=== PATIENT | male | born 1975 | race Hispanic/Latino ===

== ENCOUNTER 2019-08-12 23:07 | Inpatient (IN) | payer SELFPAY ==
[2019-08-12 23:53] VITALS: BMI 40.8
[2019-08-13] MEDS ORDERED: Labetalol HCl 100 MG/20 ML VIAL SLOW IVP PRN (00:05)
[2019-08-13] MEDS ORDERED: Dextrose 5% in Water 1,000 ML IV PRN (06:45)
[2019-08-13] MEDS ORDERED: Dextrose 50% Abboject 50 ML SYRINGE SLOW IVP PRN (06:45)
[2019-08-13] MEDS ORDERED: Sodium Chloride 0.9% 1,000 ML IV SCH (07:00)
--- NOTE | 2019-08-13 07:19 | HP ---
PRIMARY CARE PHYSICIAN: The patient does not have a primary care physician. CHIEF COMPLAINT: "I'm off-balance." HISTORY OF PRESENT ILLNESS: Mr. Mari is a very pleasant 43-year-old gentleman, who has no known past medical history. He says that yesterday morning, he started having difficulty with his balance and he says he noticed it a little bit even the night before. He says that when he gets up to walk, he finds himself kind of going to the right. He also noted some numbness on the right side of his face as well. He was also noticing some nausea and vomited 5 times. He says when he looks at things it looks like he is seeing double and when he was trying to read, it was like the words were moving back and forth. As a result, he came to the ER at [facility] for evaluation. There, he was noted to have both horizontal and rotary nystagmus, plus his blood pressure was extremely high and there was concern for possible cerebellar infarct and for this reason, he was transferred to our facility for further evaluation. The patient denies any chest pain. No shortness of breath and other than his right leg seeming like it gives out, no other weakness in his extremities. No leg pain or leg swelling and he has never been ill and has never had anything like this happen to him before. REVIEW OF SYSTEMS: All systems were reviewed and are negative except for that mentioned in the history of present illness. PAST MEDICAL HISTORY: Negative. PAST SURGICAL HISTORY: Negative. ALLERGIES: NO KNOWN DRUG ALLERGIES. SOCIAL HISTORY: He smokes about 2 to 3 cigarettes a day for the past 20 years. Denies any alcohol use. He is and he works as a night manager. FAMILY HISTORY: Significant for mother, who has diabetes as well as grandmother and a sister, who had a cerebral aneurysm. PHYSICAL EXAMINATION: GENERAL: He is currently alert and oriented. He is in no acute distress. He does admit that the bright lights do tend to bother his eyes. VITAL SIGNS: His vital signs initially at the [facility] ER, blood pressure was 239/134, his heart rate was 94, respiratory rate of 16, and he is afebrile. HEENT: Pupils are equal, round, and reactive. Extraocular muscles are intact. His sclerae are anicteric. His throat, there are no erythema, no exudates. The uvula is midline. NECK: No adenopathy. No bruits. LUNGS: Clear to auscultation. There are no wheezing, no rales, no rhonchi. CARDIOVASCULAR: He has a normal S1 and S2. I did not appreciate an S3 or S4. No murmurs, clicks, or rubs. ABDOMEN: Obese. It is soft, nontender, and nondistended. Positive for bowel sounds. No rebound. No guarding. No organomegaly. EXTREMITIES: There is no edema. No calf tenderness. No joint effusions. NEUROLOGIC: The cranial nerves II through XII are grossly intact. Muscle strength was intact in both his upper and lower extremities. He did have some difficulty with [id number] on the right upper extremity with some past-pointing of his own nose. He was able to do well on [id number]. SKIN AND INTEGUMENT: There are no skin changes and no rash. LABORATORY DATA: Lab results from the [facility] ER, the white blood cell count was 14.1, hemoglobin was 14.3, hematocrit was 42.2, and platelet count was 269. Sodium 138, potassium 2.8, chloride is 106, CO2 is 24, BUN of 12, creatinine 0.7, glucose is 388. He had a total cholesterol of 185, HDL of 41, and LDL of 86. IMAGING DATA: His EKG was normal sinus rhythm without any ST wave changes. CT scan again was reported as being negative. ASSESSMENT AND PLAN: This is a pleasant 43-year-old gentleman, who presents to the emergency room with dangerously high blood pressure and hypertensive urgency as well as ataxia and difficulty with his balance. He also appears to have new-onset diabetes as well with a random glucose above 300. 1. For hypertensive urgency, his blood pressure has improved after p.r.n. hydralazine and labetalol. We will likely keep his blood pressure in the 160 to 180 range given the concern for an acute stroke. Therefore, we will allow some permissive hypertension and place him on a low dose of lisinopril for now which can be titrated later. 2. Possible cerebellar infarct. We will get an MRI of the brain as well as a CT angiogram of the neck and agdaagux of Roman. Get an echocardiogram and monitor him clinically. 3. New-onset diabetes. We will need to get dietitian consult. Check a hemoglobin A1c and likely start him on an oral hypoglycemic such as metformin at the time of discharge. We will place him on aspirin and a statin and further recommendations to follow. Job ID: [id number]
[2019-08-13 07:25] LABS: Anion Gap 14 mmol/L (10-20); BUN (Urea Nitrogen) 15 mg/dL (8.9-20.6); Calc. Creatinine Clearance 170 mL/min (70-130); Calcium 9.2 mg/dL (7.8-10.44); Carbon Dioxide 24 mmol/L (22-29); Chloride 101 mmol/L (98-107); Estimated GFR-MDRD 90; Glucose 339 mg/dL (70-105); Potassium 3.3 mmol/L (3.5-5.1); Sodium 136 mmol/L (136-145)
[2019-08-13] MEDS ORDERED: Bisacodyl 10 MG SUPP PR PRN (08:02)
[2019-08-13] MEDS ORDERED: Zolpidem Tartrate 5 MG TAB PO PRN (08:02)
[2019-08-13] MEDS ORDERED: Ondansetron PF 4 MG/2 ML Vial IVP PRN (08:02)
[2019-08-13] MEDS ORDERED: Loratadine 10 MG TAB PO PRN (08:02)
[2019-08-13] MEDS ORDERED: Loperamide HCl 2 MG CAP PO PRN (08:02)
[2019-08-13] MEDS ORDERED: Ondansetron ODT 4 MG TAB PO PRN (08:02)
[2019-08-13] MEDS ORDERED: Senokot S 8.6-50 MG TAB PO PRN (08:02)
[2019-08-13] MEDS ORDERED: Sodium Chloride 0.65% Nasal 44 ML BOT EA NARE PRN (08:02)
[2019-08-13] MEDS ORDERED: hydrALAZINE 20 MG/ML VIAL SLOW IVP PRN (08:02)
[2019-08-13] MEDS ORDERED: Diabetic Tussin 200 MG/10 ML UDCUP PO PRN (08:02)
[2019-08-13] MEDS ORDERED: HYDROcodone/Acetaminophen 5/325 mg Tablet PO PRN (08:02)
[2019-08-13] MEDS ORDERED: Artificial Tears 18 DROP/0.9 ML EA EYE PRN (08:02)
[2019-08-13] MEDS ORDERED: Lisinopril 5 MG TAB PO SCH (09:00)
[2019-08-13] MEDS ORDERED: FLU VACC QS2019-20(6MOS UP)/PF 60 MCG/0.5 ML SYRINGE IM ONE (09:00)
[2019-08-13] MEDS: Enoxaparin Sodium 40 MG/0.4 ML SYRINGE SC SCH (09:10)
[2019-08-13] MEDS: Aspirin 325 mg Enteric Coated Tablet PO SCH (09:10)
[2019-08-13] MEDS: Acetaminophen 325 MG TAB PO PRN (09:11)
[2019-08-13] MEDS: Famotidine 20 MG TAB PO SCH ×2 (09:11→21:42)
--- NOTE | 2019-08-13 09:41 | CT ---
INDICATION: Stroke. COMPARISON: None. TECHNIQUE: CT angiogram of the head and neck are performed in the axial plane. Three-dimensional reformatted clarence ges are submitted for interpretation. FINDINGS: CTA OF THE HEAD WITH AND WITHOUT CONTRAST: NONCONTRAST HEAD CT: No parenchymal hemorrhage. No extra-axial hematoma. No midline shift. Brain volume is age-appropriate . Intact calvarium. Bilateral maxillary sinus mucosal disease. POSTCONTRAST CT OF BRAIN: Pathologic enhancement: No pathologic enhancement the brain. POSTCONTRAST SOFT TISSUE NECK CT: Sinuses: Bilateral maxillary sinus mucosal disease.. Orbits: Bilateral ocular lenses are appropriately located. Both globes are intact. Retrobulbar fat is preserved. Symmetric attenuation the optic nerves and ocular rectus muscles. Salivary glands:Symmetric attenuation of the parotid and submandibular gland . Thyroid gland: Unremarkable Lymph nodes: Scattered mildly enlarged bilateral soft tissue neck lymph nodes with preserved fatty hi lum. Findings are nonspecific. Clinical correlation is essential. [employer]ant right level 2 lymph node measures 0.8 x 1.2 cm. Left level 1 lymph node measures 1.4 x 0.7 cm. Paraspinal muscles: Symmetric attenuation of the sternocleidomastoid muscles. Appropriate attenuation of the paraspinal muscles. Cervical spine:Vertebral body height is maintained. No fracture. At the C3 level, there is narrowing of the central spinal canal likely due to calcification of the posterior longitudinal ligament. Otherwise, no significant central canal stenosis or significant neural foraminal narrowing. Limited e valuation by technique. Upper mediastinum and lung apices: No acute abnormality. CTA OF THE NECK WITH CONTRAST: Aorta: Visualized aorta is appropriate enhancement and luminal diameter. Right carotid artery: The origin of the right carotid artery has appropriate enhancement and luminal diameter. The right common carotid, carotid bifurcation and internal carotid artery have appropriate enhancement and luminal diameter. Left carotid: The origin of the left carotid artery is appropriate enhancement and luminal diameter. The left common carotid artery, carotid bifurcation and internal carotid artery have appropriate enhancement and luminal diameter. Subclavian arteries:Patent and symmetric . Vertebral arteries:Bilateral vertebral artery origins are patent. Both cervical vertebral arteries ar e patent throughout their course in the neck. Dominant right vertebral artery. CTA OF THE BRAIN: Intracranial internal carotid arteries:Symmetric enhancement and luminal diameter. Anterior circulation: Appropriate enhancement and luminal diameter of the A1 and M1 segments. Proxima l A2 segments and proximal MCA branches have appropriate enhancement and luminal diameter. Intracranial vertebral arteries: Both intracranial vertebral arteries are patent. The basilar artery is predominantly supplied by the right vertebral artery. Posterior circulation: Appropriate enhancement and luminal diameter of bilateral P1 segments. IMPRESSION: 1. No hemodynamically significant stenosis, occlusion or aneurysmal formation. No significant stenosi s based upon NASCET criteria. 2. Nonspecific soft tissue neck lymph nodes. Correlate clinically. Transcribed Date/Time: 08/13/2019 9:51 AM
--- NOTE | 2019-08-13 09:43 | MRI ---
MRI BRAIN WITHOUT CONTRAST: HISTORY: Dizziness, TIA. FINDINGS: No restricted diffusion is seen. No evidence of infarct, hemorrhage, midline shift, or abnormal extr aaxial fluid collections is noted. The ventricular size is appropriate and the basilar cisterns owens nt. There is mucosal disease in the paranasal sinuses. IMPRESSION: No evidence of acute intracranial process. POS: TPC
--- NOTE | 2019-08-13 09:44 | PDOC.HOSPP ---
- Subjective Encounter Date: 08/13/19 Encounter Time: 07:10 Subjective: pt has dizziness, no headache, no nausea or vomiting today, Patient seen and examined. No overnight events - Objective Vital Signs & Weight: Vital Signs (12 hours) Temp Pulse Resp BP BP Pulse Ox 08/13/19 09:11 68 186/95 H 08/13/19 07:14 99.3 F 68 20 186/95 H 97 08/13/19 05:10 65 175/91 H 08/13/19 04:21 86 207/109 H 08/13/19 03:26 98.6 F 86 16 207/109 H 97 08/13/19 00:27 186/98 H 08/12/19 23:09 97.7 F 74 16 221/121 H 99 Weight Weight 252 lb 12.8 oz Result Diagrams: 08/13/19 06:54 Additional Labs: Accuchecks 08/13/19 06:42 POC Glucose 294 H Radiology Reviewed by me: Yes EKG Reviewed by me: Yes Hospitalist ROS - Review of Systems Constitutional: denies: fever, chills, sweats, weakness, malaise, other ENT: denies: ear pain, ear discharge, nose pain, nose discharge, nose congestion , mouth pain, mouth swelling, throat pain, throat swelling, other Respiratory: denies: cough, dry, shortness of breath, hemoptysis, SOB with excertion, pleuritic pain, sputum, wheezing, other Cardiovascular: reports: light headedness. denies: chest pain, palpitations, orthopnea, paroxysmal noc. dyspnea, edema, other Gastrointestinal: denies: nausea, vomiting, abdominal pain, diarrhea, constipation, melena, hematochezia, other Genitourinary: denies: dysuria, frequency, incontinence, hematuria, retention, other Musculoskeletal: denies: neck pain, shoulder pain, arm pain, back pain, hand pain, leg pain, foot pain, other Skin: denies: rash, lesions, anny, bruising, other Neurological: reports: incoordination. denies: weakness, numbness, change in speech, confusion, seizures, other - Medication Medications: Active Medications Generic Name Dose Route Start Last Admin Trade Name Freq PRN Reason Stop Dose Admin Acetaminophen 650 mg 08/13/19 06:45 08/13/19 09:11 Tylenol PO 650 mg Q4H PRN Administration Headache/Fever/Mild Pain (1-3) Aspirin 325 mg 08/13/19 09:00 08/13/19 09:10 Ecotrin PO 325 mg DAILY MISTY Administration Enoxaparin Sodium 40 mg 08/13/19 09:00 08/13/19 09:10 Lovenox SC 40 mg 0900 MISTY Administration Famotidine 20 mg 08/13/19 09:00 08/13/19 09:11 Pepcid PO Not Given BID MISTY Labetalol HCl 10 mg 08/13/19 00:05 08/13/19 04:21 Normodyne SLOW IVP 10 mg Q4H PRN Administration SBP>190 Lisinopril 5 mg 08/13/19 09:00 08/13/19 09:11 Zestril PO 5 mg DAILY MISTY Administration - Exam General Appearance: NAD, awake alert Eye: PERRL, anicteric sclera ENT: normocephalic atraumatic, no oropharyngeal lesions Neck: supple, symmetric, no JVD, no thyromegaly Heart: RRR, no murmur, no gallops, no rubs Respiratory: CTAB, no wheezes, no rales, no ronchi Gastrointestinal: soft, non-tender, non-distended, normal bowel sounds Extremities: no cyanosis, no clubbing, no edema Skin: normal turgor, no lesions Neurological: no weakness Musculoskeletal: normal tone, normal strength Psychiatric: normal affect, normal behavior Hosp A/P (1) CVA (cerebral vascular accident) Code(s): I63.9 - CEREBRAL INFARCTION, UNSPECIFIED Status: Suspected Qualifiers: Precerebral and cerebral artery: cerebellar artery Laterality of affected vessel: unspecified (2) Hypertensive urgency Code(s): I16.0 - HYPERTENSIVE URGENCY Status: Acute (3) Hypokalemia Code(s): E87.6 - HYPOKALEMIA Status: Acute (4) New onset type 2 diabetes mellitus Code(s): E11.9 - TYPE 2 DIABETES MELLITUS WITHOUT COMPLICATIONS Status: Acute (5) Morbid obesity with BMI of 40.0-44.9, adult Code(s): E66.01 - MORBID (SEVERE) OBESITY DUE TO EXCESS CALORIES; Z68.41 - BODY MASS INDEX (BMI) 40.0-44.9, ADULT Status: Chronic - Plan old records reviewed/req, plan discussed w/ family continue aspirin, lipitor, today MRI brain, Echo and CT angio diatray education given continue PT will adjust BP and diabetes medication discussed with family medication reviewed
[2019-08-13 09:45] LABS: Hemoglobin A1c 13.4 % (4.0-6.0)
[2019-08-13 09:46] LABS: #Basophils 0.1 thou/uL (0.0-0.2); #Lymphocytes 2.5 thou/uL (1.20-3.40); #Monocytes 0.8 thou/uL (0.11-0.59); #Neutrophils 7.8 thou/uL (1.40-6.50); %Basophils 0.6 % (0.0-1.0); %Eosinophils 0.2 % (0.0-10.0); %Lymphocytes 21.9 % (21.0-51.0); %Monocytes 7.1 % (0.0-10.0); %Neutrophils 70.2 % (42.0-75.0); Hemoglobin 15.2 g/dL (14.0-18.0); Mean Corpuscular HGB CONC 33.5 g/dL (32.0-36.0); Mean Corpuscular Hemoglobin 29.2 pg (27.0-31.0); Mean Corpuscular Volume 87.1 fL (78.0-98.0); Platelet Count 218 thou/uL (130-400); RBC Distribution Width 12.5 % (11.5-14.5); Red Blood Cell (RBC) Count 5.23 mill/uL (4.70-6.10); White Blood Cell (WBC) Count 11.2 thou/uL (4.8-10.8)
[2019-08-13 09:49] LABS: ALT (SGPT) 16 U/L (8-55); AST (SGOT) 11 U/L (5-34); Albumin 3.7 g/dL (3.5-5.0); Alkaline Phosphatase 90 U/L (40-110); Bilirubin, Direct 0.4 mg/dL (0.1-0.3); Magnesium 1.8 mg/dL (1.6-2.6); Protein, Total 7.6 g/dL (6.0-8.3)
[2019-08-13] MEDS ORDERED: Amlodipine 5 MG TAB PO SCH (10:00)
[2019-08-13] MEDS ORDERED: Meclizine HCl 25 MG TAB PO SCH (12:00)
[2019-08-13] MEDS: HumuLIN 70/30 (300 UNITS/3 ML VIAL) SC SCH ×2 (12:40→17:01)
[2019-08-13] MEDS: Meclizine HCl 25 MG TAB PO SCH ×2 (12:51→21:42)
[2019-08-13] MEDS ORDERED: Potassium Chloride 10 MEQ in Premix Bag 1 BAG IVPB SCH (13:00)
[2019-08-13] MEDS: HumaLOG 300 UNITS/3 ML VIAL SC PRN ×3 (13:20→21:44)
[2019-08-13 15:14] LABS: Amphetamine Not Detected (NotDetected); Barbiturates Screen Not Detected (NotDetected); Benzodiazepine Screen Not Detected (NotDetected); Cocaine Metabolite Screen Not Detected (NotDetected); Medtox Control Line Valid? VALID (VALID); Medtox Reader # READER 4; Methadone Not Detected (NotDetected); Methamphetamine Not Detected (NotDetected); Opiate Screen Not Detected (NotDetected); Oxycodone Screen Not Detected (NotDetected); Phencyclidine (PCP) Not Detected (NotDetected); THC/Cannabinoid Screen Not Detected (NotDetected); Tricyclic Screen Not Detected (NotDetected)
[2019-08-13] MEDS ORDERED: Iopamidol 370 76% 100 ML VIAL ONE (15:48)
[2019-08-13] MEDS ORDERED: NPH, Human Insulin Isophane 300 UNIT/3 ML VIAL SC SCH (21:00)
[2019-08-13] MEDS: Atorvastatin Calcium 40 MG TAB PO SCH (21:42)
[2019-08-13] MEDS: Lisinopril 5 MG TAB PO SCH (21:43)
[2019-08-14] MEDS: diphenhydrAMINE 25 MG CAP PO PRN (01:44)
[2019-08-14] MEDS: Meclizine HCl 25 MG TAB PO SCH ×3 (04:45→17:07)
[2019-08-14 05:47] LABS: Cardiac Risk 5.2 (Less than 4.5)
[2019-08-14] MEDS: HumaLOG 300 UNITS/3 ML VIAL SC PRN ×3 (08:05→20:51)
[2019-08-14] MEDS ORDERED: Amlodipine 5 MG TAB PO SCH ×2 (09:00→10:45)
[2019-08-14 09:10] LABS: Bilirubin Negative (Negative); Blood, Urine Trace (Negative); Clarity Turbid (Clear); Glucose, Urine (Dipstick) Greater than 1000 mg/dL (Negative); Leukocyte 500 Leu/uL (Negative); Nitrite Negative (Negative); Protein, Urine (Dipstick) 50 mg/dL (Neg-Trace); RBC/HPF 21-50 HPF (0-3); Urobilinogen 3 mg/dL (Less than 2); WBC/HPF Greater than 50 HPF (0-3)
[2019-08-14] MEDS: Cyanocobalamin (Vitamin B-12) 1,000 MCG TAB PO SCH (09:20)
[2019-08-14] MEDS: Folic Acid 1 MG TAB PO SCH (09:20)
[2019-08-14] MEDS: Aspirin 325 mg Enteric Coated Tablet PO SCH (09:20)
[2019-08-14] MEDS: Lisinopril 5 MG TAB PO SCH ×2 (09:20→20:31)
[2019-08-14] MEDS: HumuLIN 70/30 (300 UNITS/3 ML VIAL) SC SCH ×3 (09:21→17:02)
[2019-08-14] MEDS: Famotidine 20 MG TAB PO SCH ×2 (09:21→20:31)
[2019-08-14 09:22] LABS: Bacteria/HPF 1+ HPF (None Seen)
[2019-08-14] MEDS: Enoxaparin Sodium 40 MG/0.4 ML SYRINGE SC SCH (09:22)
--- NOTE | 2019-08-14 10:37 | PDOC.HOSPP ---
- Subjective Encounter Date: 08/14/19 Encounter Time: 10:20 Subjective: f/u for ? CVA, vertigo and HTN urgency. States overall the dizziness is improved but still holding onto the wall while walking to bathroom. Some double vision and disturbance but improved in last 24h. - Objective Vital Signs & Weight: Vital Signs (12 hours) Temp Pulse Resp BP BP Pulse Ox 08/14/19 09:21 59 L 142/85 H 08/14/19 09:20 59 L 142/85 H 08/14/19 07:13 97.9 F 59 L 16 177/103 H 97 08/14/19 03:10 98 F 55 L 16 137/75 98 08/13/19 23:44 97.8 F 63 16 140/82 98 Weight Weight 252 lb 12.8 oz I&O: 08/13/19 08/14/19 08/15/19 06:59 06:59 06:59 Intake Total 120 Output Total 900 Balance -780 Result Diagrams: 08/13/19 09:17 08/13/19 06:54 Additional Labs: Accuchecks 08/14/19 08/13/19 08/13/19 06:00 20:23 16:34 POC Glucose 213 H 309 H 344 H 08/13/19 10:41 POC Glucose 347 H Radiology Reviewed by me: Yes (Echo - EF 55-60%, diast dysfxn) EKG Reviewed by me: Yes (Tele - SR) Hospitalist ROS - Medication Medications: Active Medications Generic Name Dose Route Start Last Admin Trade Name Freq PRN Reason Stop Dose Admin Acetaminophen 650 mg 08/13/19 06:45 08/13/19 09:11 Tylenol PO 650 mg Q4H PRN Administration Headache/Fever/Mild Pain (1-3) Aspirin 325 mg 08/13/19 09:00 08/14/19 09:20 Ecotrin PO 325 mg DAILY MISTY Administration Atorvastatin Calcium 40 mg 08/13/19 21:00 08/13/19 21:42 Lipitor PO 40 mg HS MISTY Administration Cyanocobalamin 1,000 mcg 08/14/19 09:00 08/14/19 09:20 Vitamin B-12 PO 1,000 mcg DAILY MISTY Administration Diphenhydramine HCl 25 mg 08/14/19 01:11 08/14/19 01:44 Benadryl PO 25 mg Q6H PRN Administration Itching & Insomnia Enoxaparin Sodium 40 mg 08/13/19 09:00 08/14/19 09:22 Lovenox SC 40 mg 0900 MISTY Administration Famotidine 20 mg 08/13/19 09:00 08/14/19 09:21 Pepcid PO 20 mg BID MISTY Administration Folic Acid 1 mg 08/14/19 09:00 08/14/19 09:20 Folvite PO 1 mg DAILY MISTY Administration Hydralazine HCl 10 mg 08/13/19 08:02 08/13/19 09:47 Apresoline SLOW IVP 10 mg Q4H PRN Administration SBP > 180 and HR < 70 Insulin Human Isoph/Insulin Regular 10 units 08/13/19 11:30 08/14/19 09:21 Humulin 70/30 SC 10 unit AC MISTY Administration Insulin Human Lispro 0 units 08/13/19 06:45 08/14/19 08:05 Humalog SC 4 unit .MODERATE SLIDING SC PRN Administration Moderate Correctional Scale Insulin Human Lispro 0 units 08/13/19 06:45 08/13/19 21:44 Humalog SC 4 unit .BEDTIME SLIDING SC PRN Administration Bedtime Correctional Scale Labetalol HCl 10 mg 08/13/19 00:05 08/13/19 04:21 Normodyne SLOW IVP 10 mg Q4H PRN Administration SBP>190 Lisinopril 5 mg 08/13/19 21:00 08/14/19 09:20 Zestril PO 5 mg BID MISTY Administration - Exam General Appearance: NAD, awake alert Eye: PERRL Eye - other findings: + horizontal nystagmus ENT: normocephalic atraumatic, no oropharyngeal lesions Neck: supple, symmetric, no JVD, no thyromegaly Heart: RRR, no murmur, no gallops, no rubs, normal peripheral pulses Respiratory: CTAB, no wheezes, no rales, no ronchi Gastrointestinal: soft, non-tender, non-distended, normal bowel sounds Extremities: no cyanosis, no clubbing, no edema Skin: normal turgor, no lesions Neurological: cranial nerve grossly intact Neurological - other findings: +nystagmus Musculoskeletal: normal tone, normal strength, no muscle wasting Psychiatric: normal affect, normal behavior, A&O x 3 Hosp A/P (1) Vertigo Code(s): R42 - DIZZINESS AND GIDDINESS Status: Acute Plan: Likely due to HTN urgency, increase Meclizine 25mg po q6h, may consider outpt vestibular rehab, MRI brain negative (2) Nystagmus Code(s): H55.00 - UNSPECIFIED NYSTAGMUS Status: Acute Plan: Secondary to #1, see above (3) Hypertensive urgency Code(s): I16.0 - HYPERTENSIVE URGENCY Status: Acute Plan: Resolved, increase Amlodipine 10mg po daily, continue Lisinopril (4) Hypokalemia Code(s): E87.6 - HYPOKALEMIA Status: Acute Plan: Mild, increase po intake (5) New onset type 2 diabetes mellitus Code(s): E11.9 - TYPE 2 DIABETES MELLITUS WITHOUT COMPLICATIONS Status: Acute Plan: continue ISS, continue Insulin 70/30, add Metformin for home (6) Morbid obesity with BMI of 40.0-44.9, adult Code(s): E66.01 - MORBID (SEVERE) OBESITY DUE TO EXCESS CALORIES; Z68.41 - BODY MASS INDEX (BMI) 40.0-44.9, ADULT Status: Chronic - Plan plan discussed w/ family, PT/OT, social staff worker, out of bed/ambulate Increase Amlodipine 10mg daily Continue Lisinopril Increase Meclizine 25mg po q6h OOB with PT Outpt referral for vestibular rehab Add Metformin 500mg BID Likely home in 24h
[2019-08-14] MEDS: Cepastat Lozenges 1 LOZ PO PRN ×2 (14:00→17:12)
[2019-08-14] MEDS: metFORMIN 500 MG TAB PO SCH (16:28)
[2019-08-14] MEDS ORDERED: Albuterol Sulfate 1.25 MG/3 ML NEB ONE (17:06)
[2019-08-14] MEDS: Atorvastatin Calcium 40 MG TAB PO SCH (20:31)
--- NOTE | 2019-08-14 23:13 | CON ---
DATE OF CONSULTATION: 08/14/2019 CONSULTING PHYSICIAN: Hospitalist Service. IMPRESSION: 1. Probable brainstem stroke secondary to his underlying diabetes and hypertension despite the negative MRI. 2. Undiagnosed diabetes and hypertension. PLAN: 1. Continue aspirin and a statin. 2. Address blood pressure and blood sugar issues. 3. Consider need for outpatient GI followup for complaints of difficulty passing food down the esophagus. HISTORY OF PRESENT ILLNESS: Mr. Mari is a 43-year-old man, who came in with complaints of acute onset of double vision. He described the images in a skew deviation. There was some minimal dizziness associated with it. He had a tendency to fall to the right. He noted some right facial numbness. He had a CT angiogram, which did not show any evidence of stenosis. His MRI of the brain was also negative for any findings of an acute infarct. His echocardiogram showed ejection fraction of 55% to 60%. His degree of unsteadiness has improved. The double vision has persisted. He is without any complaints of headache. He reports that when he tries to eat it feels like food is hanging up in his esophagus. There is no choking associated with it. He denies any lateralized numbness of the extremities. He has not noticed any weakness in his extremities. PAST MEDICAL HISTORY: Otherwise negative. ALLERGIES: NONE REPORTED. SOCIAL HISTORY: No tobacco or alcohol. FAMILY HISTORY: Noncontributory. REVIEW OF SYSTEMS: Ten-system review of systems is otherwise unremarkable. PHYSICAL EXAMINATION: GENERAL: He is an overweight middle-aged man, sitting up in bed, in no acute distress. VITAL SIGNS: Pulse 55, respirations 20. He is afebrile. HEENT: Pupils are equal and reactive. Conjunctivae clear. Oropharynx clear. There is some nystagmus present in the left lateral gaze. NECK: No lymphadenopathy present. EXTREMITIES: No cyanosis or edema. NEUROLOGIC: He is alert and cooperative. His speech is fluent and clear. Cranial nerve exam was otherwise only notable for his subjective decreased sensation in the right lower face. Motor exam showed good strength bilaterally. No tremor or dysmetria was present at this time, although he reported it earlier in the visit. Sensation is intact. Gait was not tested. LABORATORY DATA: EKG shows normal sinus rhythm. SUMMARY: Despite the lack of findings on MRI, his array of symptoms would be consistent with a brainstem stroke. It is likely a small stroke might have been missed on MRI. I would continue stroke prevention plan as well as address his underlying risk factors. Job ID: [id number] MTDD
[2019-08-15] MEDS: Meclizine HCl 25 MG TAB PO SCH ×6 (01:37→23:24)
[2019-08-15] MEDS: diphenhydrAMINE 25 MG CAP PO PRN ×2 (03:00→22:59)
[2019-08-15] MEDS: Acetaminophen 325 MG TAB PO PRN ×2 (03:09→17:24)
[2019-08-15] MEDS: Amlodipine 10 MG TAB PO SCH (08:19)
[2019-08-15] MEDS: Folic Acid 1 MG TAB PO SCH (08:19)
[2019-08-15] MEDS: Enoxaparin Sodium 40 MG/0.4 ML SYRINGE SC SCH (08:20)
[2019-08-15] MEDS: metFORMIN 500 MG TAB PO SCH ×2 (08:20→17:24)
[2019-08-15] MEDS: Lisinopril 5 MG TAB PO SCH (08:20)
[2019-08-15] MEDS: Aspirin 325 mg Enteric Coated Tablet PO SCH (08:20)
[2019-08-15] MEDS: Cyanocobalamin (Vitamin B-12) 1,000 MCG TAB PO SCH (08:20)
[2019-08-15] MEDS: Famotidine 20 MG TAB PO SCH ×2 (08:22→21:31)
[2019-08-15] MEDS: HumuLIN 70/30 (300 UNITS/3 ML VIAL) SC SCH ×3 (08:22→17:24)
[2019-08-15] MEDS ORDERED: Lisinopril 5 MG TAB PO SCH (08:50)
--- NOTE | 2019-08-15 09:12 | PDOC.HOSPP ---
- Subjective Encounter Date: 08/15/19 Encounter Time: 09:05 Subjective: f/u for vertigo, ? CVA and nystagmus. Still symptomatic and wearing an eye patch to help with double-vision. Ambulating with RW. c/o some throat irritation , dysphagia. - Objective Vital Signs & Weight: Vital Signs (12 hours) Temp Pulse Resp BP BP Pulse Ox 08/15/19 08:20 66 156/93 H 08/15/19 08:19 66 156/93 H 08/15/19 07:13 98.1 F 66 16 174/96 H 97 08/15/19 03:31 97.9 F 61 20 179/91 H 97 08/14/19 22:59 98.7 F 63 18 169/91 H 97 Weight Weight 252 lb 12.8 oz I&O: 08/14/19 08/15/19 08/16/19 06:59 06:59 06:59 Intake Total 120 Output Total 900 Balance -780 Result Diagrams: 08/13/19 09:17 08/13/19 06:54 Additional Labs: Accuchecks 08/15/19 08/14/19 08/14/19 06:05 19:30 16:23 POC Glucose 169 H 301 H 166 H 08/14/19 08/14/19 16:23 10:38 POC Glucose 166 H 314 H EKG Reviewed by me: Yes (Tele - SR) Hospitalist ROS - Medication Medications: Active Medications Generic Name Dose Route Start Last Admin Trade Name Freq PRN Reason Stop Dose Admin Acetaminophen 650 mg 08/13/19 06:45 08/15/19 03:09 Tylenol PO 650 mg Q4H PRN Administration Headache/Fever/Mild Pain (1-3) Amlodipine Besylate 10 mg 08/15/19 09:00 08/15/19 08:19 Norvasc PO 10 mg DAILY MISTY Administration Aspirin 325 mg 08/13/19 09:00 08/15/19 08:20 Ecotrin PO 325 mg DAILY MISTY Administration Atorvastatin Calcium 40 mg 08/13/19 21:00 08/14/19 20:31 Lipitor PO 40 mg HS MISTY Administration Cyanocobalamin 1,000 mcg 08/14/19 09:00 08/15/19 08:20 Vitamin B-12 PO 1,000 mcg DAILY MISTY Administration Diphenhydramine HCl 25 mg 08/14/19 01:11 08/15/19 03:00 Benadryl PO 25 mg Q6H PRN Administration Itching & Insomnia Enoxaparin Sodium 40 mg 08/13/19 09:00 08/15/19 08:20 Lovenox SC 40 mg 0900 MISTY Administration Famotidine 20 mg 08/13/19 09:00 08/15/19 08:22 Pepcid PO 20 mg BID MISTY Administration Folic Acid 1 mg 08/14/19 09:00 08/15/19 08:19 Folvite PO 1 mg DAILY MISTY Administration Hydralazine HCl 10 mg 08/13/19 08:02 08/13/19 09:47 Apresoline SLOW IVP 10 mg Q4H PRN Administration SBP > 180 and HR < 70 Insulin Human Isoph/Insulin Regular 10 units 08/13/19 11:30 08/15/19 08:22 Humulin 70/30 SC 10 unit AC MISTY Administration Insulin Human Lispro 0 units 08/13/19 06:45 08/14/19 11:12 Humalog SC 8 unit .MODERATE SLIDING SC PRN Administration Moderate Correctional Scale Insulin Human Lispro 0 units 08/13/19 06:45 08/14/19 20:51 Humalog SC 4 unit .BEDTIME SLIDING SC PRN Administration Bedtime Correctional Scale Labetalol HCl 10 mg 08/13/19 00:05 08/13/19 04:21 Normodyne SLOW IVP 10 mg Q4H PRN Administration SBP>190 Meclizine HCl 25 mg 08/14/19 12:00 08/15/19 06:39 Antivert PO 25 mg Q6HR MISTY Administration Metformin HCl 500 mg 08/14/19 17:00 08/15/19 08:20 Glucophage PO 500 mg BID-WM MISTY Administration Throat Lozenges 1 jose m 08/13/19 08:02 08/14/19 17:12 Cepastat Lozenges PO 1 jose m Q2H PRN Administration Sore Throat - Exam General Appearance: NAD, awake alert Eye: PERRL Eye - other findings: + nystagmus ENT: normocephalic atraumatic, no oropharyngeal lesions ENT - other findings: TM's clear bilat, no pharyngeal exudate, uvula midline, mild erythema Neck: supple, symmetric, no JVD, no thyromegaly Heart: RRR, no murmur, no gallops, no rubs, normal peripheral pulses Respiratory: CTAB, no wheezes, no rales, no ronchi, normal chest expansion Gastrointestinal: soft, non-tender, non-distended, normal bowel sounds, no palpable masses Extremities: no cyanosis, no clubbing, no edema Skin: normal turgor, no lesions Neurological: no new deficit, vision deficit Neurological - other findings: + nystagmus Musculoskeletal: normal tone, normal strength, no muscle wasting Psychiatric: normal affect, A&O x 3 Hosp A/P (1) Vertigo Code(s): R42 - DIZZINESS AND GIDDINESS Status: Acute Plan: Continue Meclizine, encourage increased fluid intake, ? brainstem CVA but MRI negative (2) Nystagmus Code(s): H55.00 - UNSPECIFIED NYSTAGMUS Status: Acute Plan: Persistent, see #1, eye patch PRN (3) Hypertensive urgency Code(s): I16.0 - HYPERTENSIVE URGENCY Status: Acute Plan: Labile HTN, switch Lisinopril to Hydralazine, continue Amlodipine 10mg daily, serial monitoring (4) Hypokalemia Code(s): E87.6 - HYPOKALEMIA Status: Acute (5) New onset type 2 diabetes mellitus Code(s): E11.9 - TYPE 2 DIABETES MELLITUS WITHOUT COMPLICATIONS Status: Acute Plan: Continue Metformin 500mg BID, continue Insulin 70/30, ISS, serial accuchecks (6) Morbid obesity with BMI of 40.0-44.9, adult Code(s): E66.01 - MORBID (SEVERE) OBESITY DUE TO EXCESS CALORIES; Z68.41 - BODY MASS INDEX (BMI) 40.0-44.9, ADULT Status: Chronic - Plan plan discussed w/ family, PT/OT, social service agency director, speech therapy, DVT proph w/ SCDs Increase Amlodipine 10mg daily D/C Lisinopril Start Hydralazine 25mg BID Increase Meclizine 25mg po q6h OOB with PT Outpt referral for vestibular rehab Add Metformin 500mg BID Consider re-imaging of brain Likely home in 24h
[2019-08-15] MEDS ORDERED: hydrALAZINE 25 MG TAB PO SCH (10:00)
[2019-08-15] MEDS: HumaLOG 300 UNITS/3 ML VIAL SC PRN (11:55)
[2019-08-15] MEDS: Atorvastatin Calcium 40 MG TAB PO SCH (21:31)
[2019-08-15] MEDS: hydrALAZINE 25 MG TAB PO SCH (21:32)
[2019-08-16] MEDS: Meclizine HCl 25 MG TAB PO SCH ×2 (05:03→12:41)
[2019-08-16] MEDS: HumuLIN 70/30 (300 UNITS/3 ML VIAL) SC SCH ×2 (08:14→12:15)
[2019-08-16] MEDS: hydrALAZINE 25 MG TAB PO SCH (08:17)
[2019-08-16] MEDS: Enoxaparin Sodium 40 MG/0.4 ML SYRINGE SC SCH (08:17)
[2019-08-16] MEDS: metFORMIN 500 MG TAB PO SCH (08:18)
[2019-08-16] MEDS: Folic Acid 1 MG TAB PO SCH (08:18)
[2019-08-16] MEDS: Famotidine 20 MG TAB PO SCH (08:18)
[2019-08-16] MEDS: Aspirin 325 mg Enteric Coated Tablet PO SCH (08:18)
[2019-08-16] MEDS: Cyanocobalamin (Vitamin B-12) 1,000 MCG TAB PO SCH (08:18)
[2019-08-16] MEDS: Amlodipine 10 MG TAB PO SCH (08:18)
[2019-08-16 11:20] VITALS: BP 136/73; TEMP 98.2
[2019-08-16] MEDS: HumaLOG 300 UNITS/3 ML VIAL SC PRN (12:16)
--- NOTE | 2019-08-17 04:06 | DIS ---
DATE OF ADMISSION: 08/12/2019 DATE OF DISCHARGE: 08/16/2019 DISCHARGE DIAGNOSES: 1. Acute brainstem CVA suspected with negative MRI results. 2. Vertigo secondary to #1, persistent. 3. Nystagmus secondary to #1. 4. Hypertensive urgency, resolved. 5. Hypokalemia, resolved. 6. Diabetes mellitus type 2, uncontrolled. 7. Morbid obesity. 8. Hypertension, improved. CONSULTATIONS: Dr. Kaleb Alexander with Neurology Service. PERTINENT LABORATORY AND X-RAY FINDINGS: Potassium 3.3, hemoglobin A1c 13.4, calcium 9.2, TSH 0.76. Total cholesterol 160, triglycerides 193, HDL 31, LDL 90. CBC within normal limits. Urine drug screen dated 08/13/2019, negative. MRI of the brain dated 08/13/2019 showed no acute intracranial process. CT angiogram of [place] dated 08/13/2019 showed no hemodynamically significant stenosis, occlusion, or aneurysm. 2D transthoracic echocardiogram dated 08/13/2019 showed ejection fraction 55% to 60%. Diastolic dysfunction. Mild mitral regurgitation. HOSPITAL COURSE: The patient was initially admitted to the stroke unit after presenting with severe vertigo with associated right facial paresthesias and nausea and vomiting. The patient underwent evaluation with initial evaluation at an outside emergency room undergoing CT imaging showing no acute process. The patient was referred to [facility] general stroke protocol due to presentation and hypertensive urgency. The patient was initially placed on hydralazine and labetalol with overall improvement in blood pressure trend. The patient also underwent MRI imaging of the brain after concern for possible cerebellar or brainstem infarct, however, no specific evidence was noted on MRI imaging. The patient was evaluated by the Neurology Service with recommendations to treat clinical signs consistent with stroke, even though MRI imaging did not confirm this. The patient continued aspirin, Lipitor, and management for uncontrolled hypertension. The patient was also diagnosed with diabetes mellitus type 2 and initiated on insulin and metformin with overall improvement and glucose trend. The patient received ongoing physical, occupational, and speech therapy with overall improvement and mobilization. Current recommendations are for outpatient physical therapy in addition to vestibular rehabilitation therapy due to dizziness and vertigo. I have examined the patient at the time of discharge and discussed followup instructions. The patient verbalized understanding and agreement, ready for discharge on 08/16/2019. DISCHARGE MEDICATIONS: 1. Amlodipine 10 mg p.o. daily. 2. Lipitor 40 mg p.o. at bedtime. 3. Humulin 70/30 at 10 units subcutaneously b.i.d. 4. Hydralazine 25 mg p.o. b.i.d. 5. Metformin 500 mg p.o. b.i.d. 6. Meclizine 25 mg p.o. q.6 hours p.r.n. vertigo. 7. Enteric-coated aspirin 81 mg p.o. daily. FOLLOWUP: The patient will establish with the primary care provider in [place], [place], where he resides. CONDITION ON DISCHARGE: Fair. ACTIVITY: Ad-nelly. No driving until established outpatient followup with primary care provider. DIET: ADA and heart healthy. CODE STATUS: Full. DISPOSITION: Home on 08/16/2019. TIME SPENT: Total time preparing and coordinating discharge is 35 minutes. Job ID: [id number]
== END 2019-08-16 13:36 | disposition home or self-care (01) | DRG 65 ==
LOC: 2SE 23:07
PROVIDERS: ADMIT Internal Medicine; ATTEND Internal Medicine
DX: I63.89 Other cerebral infarction (principal); Z68.41 Body mass index [BMI] 40.0-44.9, adult; I16.0 Hypertensive urgency; I10 Essential (primary) hypertension; F17.210 Nicotine dependence, cigarettes, uncomplicated; R27.0 Ataxia, unspecified; E87.6 Hypokalemia; E11.9 Type 2 diabetes mellitus without complications; E66.01 Morbid (severe) obesity due to excess calories; H55.00 Unspecified nystagmus
CPT/HCPCS: 36415; 36416; 70496; 70498; 70551; 80048; 80061; 80076; 80306; 81003; 81015; 83036; 83735; 84443; 85025; 93306; J0360; J1650; J1815; J3480; J8597; Q0163; Q9967